=== PATIENT | male | born 1970 | race Caucasian/White ===

== ENCOUNTER 2021-07-28 09:09 | Emergency (ER) | payer OTHER, SELFPAY ==
[2021-07-28 09:18] VITALS: BP 146/98; PULSE 87; RESP 16; TEMP 36.2; O2SAT 98
--- NOTE | 2021-07-28 10:01 | ED.BACK ---
HPI - Back Pain/Injury General Chief Complaint: Back Pain/Injury Stated Complaint: Back Pain Source: patient Mode of arrival: ambulatory Limitations: no limitations History of Present Illness HPI Narrative: 50-year-old male presents to [facility] with complaints of pain to his right buttock region which is rating down to his right leg for the past 4 days. Patient has been taking [id number] Aleve with minimal relief. Patient does report history of back pains. Patient denies numbness, tingling, bowel or bladder problems. MD elicited complaint: back pain Onset (ago): day(s) (4) Similar Symptoms Previously: Yes Location: right lower back Radiation: right upper leg Exacerbating factors: none Relieving factors: none Related Data Allergies Allergy/AdvReac Type Severity Reaction Status Date / Time No Known Allergies Allergy Verified 07/28/21 09:33 Review of Systems Constitutional: Constitutional: Denies chills, Denies fatigue, Denies fever(s) and Denies weakness ENT: Denies sore throat Cardiovascular: Cardiovascular: Denies chest pain Respiratory: Respiratory: Denies cough and Denies wheezing Gastrointestinal: Gastrointestinal: Denies abdominal pain, Denies diarrhea, Denies nausea and Denies vomiting Musculoskeletal: Musculoskeletal: Reports back pain, Denies arthralgias and Denies joint swelling Integumentary/Breasts: Skin/Breast: Denies rash Neurologic: Denies dizziness PMFSH Past Medical History Medical History No pertinent family history No significant past medical history Surgical History Surgical History S/P ACL repair Social History Social History Smoking packs per day: 0.5 Smoking cigarettes per day: 10.0 Smoking status: Current every day smoker Comments At time of signature, I agree with nursing past medical, surgical, social and family history. There is no relevant family history pertinent to the presenting complaint. Exam Const: General: no acute distress Nutritional Appearance: well nourished Orientation/consciousness: patient oriented x3 Neck: Neck: normal visual inspection Resp: Effort & Inspection: normal respiratory effort and not tachypneic Auscultation: clear to auscultation bilaterally Cardio: Rate: regular rate Rhythm: regular rhythm Back/Spine/Pelvis: Back: no CVA tenderness Other: pain to right sciatica area upon palpation -- no swelling, erythema or bruising noted Skin: General skin exam: normal color Rashes: no rashes Wounds: no wounds Neuro: General: patient oriented x3 Extrem: General: normal to inspection and no pedal edema Psych: Appearance: grossly normal Mental Status: mental status grossly normal Affect: normal affect Attitude: cooperative Thought content: Yes Normal thought content present Course Vital Signs Vital signs: Vital Signs Temperature 36.2 C L 07/28/21 09:18 Pulse Rate 87 07/28/21 09:18 Respiratory Rate 16 07/28/21 09:18 Blood Pressure 146/98 H 07/28/21 09:18 Pulse Oximetry 98 07/28/21 09:18 Temperature 36.2 C L 07/28/21 09:18 Pulse Rate 87 07/28/21 09:18 Respiratory Rate 16 07/28/21 09:18 Blood Pressure 146/98 H 07/28/21 09:18 Pulse Oximetry 98 07/28/21 09:18 MDM - Back Pain/Injury MDM Narrative Medical decision making narrative: Patient received medications as prescribed. Work excuse provided for patient. Patient agrees to proceed to the emergency room if symptoms worsen Differential Diagnosis Differential diagnosis: Likely lumbar radiculopathy and strain of lumbar region Critical Care Time Critical Care Time Critical Care Time: No Discharge Plan Discharge Clinical Impression: Right sided sciatica Patient Disposition: Home, Self-Care Condition: Stable Instructions: Sciatica (ED) Additional Instructions:
== END 2021-07-28 10:23 | disposition home or self-care (01) ==
PROVIDERS: Emergency Provider Nurse Practitioner Family
DX: M54.31 Sciatica, right side (principal); F17.210 Nicotine dependence, cigarettes, uncomplicated
CPT/HCPCS: 99213; G0463